=== PATIENT | female | born 1990 | race Caucasian/White ===

== ENCOUNTER → 2018-08-14 | Outpatient (CLI) | payer OTHER, BC ==
[2016-09-09 09:00] VITALS: BMI 23.8
[~2018-08-14] MED LIST: ACYC-50 PO; KET10 PO; LOR5/325 PO
[2018-08-14 10:36] LABS: PLATELET COUNT, AUTOMATED 294 K/uL (150-450)
[2018-08-14 10:41] LABS: LDL CHOLESTEROL 90 mg/dl
== END ==
LOC: LAB 09:59
PROVIDERS: ATTEND Internal Medicine
DX: Z00.00 Encounter for general adult medical examination without abnormal findings (principal)
CPT/HCPCS: 36415; 81001; 82040; 82247; 82310; 82374; 82435; 82465; 82565; 82947; 83718; 84075; 84132; 84155; 84295; 84443; 84450; 84460; 84478; 84520; 85025

== ENCOUNTER → 2018-11-20 | Outpatient (CLI) | payer OTHER, BC ==
[2016-09-09 09:00] VITALS: BMI 23.8
[2018-11-20 10:23] LABS: PLATELET COUNT, AUTOMATED 301 K/uL (150-450)
== END ==
LOC: LAB 08:06
PROVIDERS: ATTEND Obstetrics & Gynecology
DX: Z34.81 Encounter for supervision of other normal pregnancy, first trimester (principal)
CPT/HCPCS: 36415; 81001; 84702; 85025; 86592; 86703; 86762; 86850; 86900; 86901; 87088; 87340

== ENCOUNTER → 2018-11-27 | Outpatient (CLI) | payer OTHER, BC ==
[2016-09-09 09:00] VITALS: BMI 23.8
== END ==
LOC: LAB 09:40
PROVIDERS: ATTEND Obstetrics & Gynecology
DX: Z02.9 Encounter for administrative examinations, unspecified (principal)

== ENCOUNTER → 2018-12-10 | Outpatient (CLI) | payer BC, OTHER ==
[2016-09-09 09:00] VITALS: BMI 23.8
--- NOTE | 2018-12-10 14:24 | RADIOLOGY IMAGING REPORT ---
FACILITY: [facility] [place] PATIENT NAME: Bhavna Smith : 1990 MR: [id number] V: [id number] EXAM DATE: ORDERING PHYSICIAN: JUAN MANUEL BEY TECHNOLOGIST: Location: [facility] [place] Patient: Bhavna Smith : 1990 Visit/Account:[id number] Date of Sevice: 12/10/2018 Transvaginal OB Ultrasound HISTORY: Confirm dating and heart tones, EDC 07/20/19 by 6wk US COMPARISON: None. TECHNIQUE: Transvaginal imaging was performed for detailed assessment of the uterus, , and o varies. FINDINGS: Gestational sac: Single, intrauterine, and unremarkable Yolk sac: Visualized. Embryo: Visualized. Embryonic cardiac activity: 174 Beats per minute Estimated gestational age by LMP of 10/13/2018: Eight weeks and two days Ultrasound age: Eight weeks and three days by crown-rump length Subchorionic hemorrhage: None visualized. Uterus: Gravid, otherwise unremarkable. Maternal ovaries: Right ovary measures 3.7 x 22.9 x 1.9 cm is a 2.2 x 1.9 cm solid hypoechoic nodule with peripheral vascularity in the right ovary. The left ovary measures 2.2 x 2.3 x 1.5 cm Adnexa: Negative Free pelvic fluid: None. IMPRESSION: Single viable intrauterine gestation estimated age by crown-rump length of eight weeks and three days . Report Dictated By: Tasha Luevano MD at 12/10/2018 1:53 PM Report E-Signed By: Tasha Luevano MD at 12/10/2018 1:58 PM WSN:[id number]
== END ==
LOC: RAD 10:46
PROVIDERS: ATTEND Obstetrics & Gynecology
DX: Z02.9 Encounter for administrative examinations, unspecified (principal)

== ENCOUNTER → 2019-03-04 | Outpatient (CLI) | payer OTHER ==
[2016-09-09 09:00] VITALS: BMI 23.8
[~2019-03-04] MED LIST changes: +ONDA4TAB9 PO
== END ==
LOC: RAD 12:54
PROVIDERS: ATTEND Obstetrics & Gynecology
DX: Z34.02 Encounter for supervision of normal first pregnancy, second trimester (principal)